=== PATIENT | female | born 2000 | race Caucasian/White ===

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

== ENCOUNTER 2021-01-26 21:06 | Emergency (ER) | payer OTHER ==
[~2021-01-26 21:06] MED LIST: Sodium Chloride 0.9% 1,000 ML BAG ONE
[2021-01-26 23:02] LABS: #Basophils 0.1 thou/uL (0.0-0.2); #Eosinphils 0.2 thou/uL (0.0-0.7); #Lymphocytes 2.3 thou/uL (1.20-3.40); #Monocytes 0.5 thou/uL (0.11-0.59); #Neutrophils 3.3 thou/uL (1.40-6.50); %Basophils 1.3 % (0.0-1.0); %Eosinophils 2.4 % (0.0-10.0); %Lymphocytes 36.3 % (28.0-48.0); %Monocytes 7.7 % (0.0-4.0); %Neutrophils 52.2 % (31.0-61.0); Mean Corpuscular HGB CONC 30.9 g/dL (32.0-36.0); Mean Corpuscular Volume 87.4 fL (78.0-98.0); Mean Platelet Volume 7.7 fL (7.4-10.4); Platelet Count 296 thou/uL (130-400); RBC Distribution Width 11.9 % (11.5-14.5); Red Blood Cell (RBC) Count 5.17 mill/uL (4.00-5.20); White Blood Cell (WBC) Count 6.2 thou/uL (4.8-10.8)
[2021-01-26 23:24] LABS: BHCG - Serum Negative (NEGATIVE); Pregs Control Background? CLEAR/WHITE (CLR/WHITE); Pregs Control Bar Appear? YES (CONTROL BAR)
[2021-01-26 23:30] LABS: ALT (SGPT) 50 U/L (8-55); AST (SGOT) 26 U/L (5-30); Albumin 4.3 g/dL (3.5-5.0); Alkaline Phosphatase 46 U/L (40-100); Anion Gap 13 mmol/L (10-20); BUN (Urea Nitrogen) 13 mg/dL (8.4-21.0); Bilirubin, Total 0.3 mg/dL (0.2-1.2); CK (CPK) 118 U/L (29-168); Calc. Creatinine Clearance 0 mL/min (70-130); Calcium 9.8 mg/dL (7.8-10.44); Carbon Dioxide 22 mmol/L (22-29); Chloride 110 mmol/L (98-107); Globulin 3.1 g/dL (2.4-3.5); Glucose 126 mg/dL (70-105); Magnesium 2.1 mg/dL (1.7-2.2); Potassium 3.9 mmol/L (3.5-5.1); Protein, Total 7.4 g/dL (6.0-8.3); Sodium 141 mmol/L (136-145)
== END 2021-01-26 23:44 | disposition home or self-care (01) ==
LOC: MADERS 21:06
DX: E86.0 Dehydration (principal); E51.9 Thiamine deficiency, unspecified; R10.31 Right lower quadrant pain; Z87.891 Personal history of nicotine dependence
CPT/HCPCS: 80053; 82550; 83735; 84703; 85025; 99284; J7050

== ENCOUNTER 2021-05-27 16:44 | Emergency (ER) | payer OTHER ==
[2021-05-27] MEDS ORDERED: Amoxicillin/Potassium Clav 875 MG TAB ONE (17:53)
[2021-05-27] MEDS ORDERED: Boostrix 0.5 ML (Tdap) VIAL ONE (17:53)
== END 2021-05-27 18:10 | disposition home or self-care (01) ==
LOC: MADERS 16:44
DX: S51.841A Puncture wound with foreign body of right forearm, initial encounter (principal); W54.0XXA Bitten by dog, initial encounter; F17.200 Nicotine dependence, unspecified, uncomplicated
CPT/HCPCS: 90471; 90715

== ENCOUNTER 2021-10-12 14:40 | Emergency (ER) | payer OTHER ==
[2021-10-12] MEDS ORDERED: Mag-Al Plus 1200 MG/1200 MG/120 MG/30 ML UDCUP ONE (15:39)
[2021-10-12 15:44] LABS: Bilirubin Negative (Negative); Blood, Urine Trace (Negative); Clarity Clear (Clear); Glucose, Urine (Dipstick) 500 mg/dL (Negative); Ketone, Urine Negative (Negative); Leukocyte Negative (Negative); Nitrite Negative (Negative); Protein, Urine (Dipstick) Negative (Neg-Trace); Specific Gravity, Urine 1.015 (1.005-1.030); Urobilinogen 0.2 mg/dL (Less than 2); pH, Urine 5.5 (5.0-9.0)
[2021-10-12 16:01] LABS: Bacteria/HPF Rare-Few HPF (None Seen); Mucous/LPF None Seen LPF (<2+); RBC/HPF 0-3 HPF (0-3); WBC/HPF 0-3 HPF (0-3)
== END 2021-10-12 16:29 | disposition home or self-care (01) ==
LOC: MADERS 14:40
DX: K29.70 Gastritis, unspecified, without bleeding (principal); K12.1 Other forms of stomatitis; E28.2 Polycystic ovarian syndrome; E11.65 Type 2 diabetes mellitus with hyperglycemia; I50.9 Heart failure, unspecified; F17.220 Nicotine dependence, chewing tobacco, uncomplicated
CPT/HCPCS: 36416; 81003; 81015; 99284

== ENCOUNTER 2022-02-04 13:13 | Emergency (ER) | payer OTHER ==
[2022-02-04] MEDS ORDERED: Albuterol 200 PUFF (6.7GM INHALER) ONE (13:58)
== END 2022-02-04 14:12 | disposition home or self-care (01) ==
LOC: MADERS 13:13
DX: J20.9 Acute bronchitis, unspecified (principal); I50.9 Heart failure, unspecified; E11.9 Type 2 diabetes mellitus without complications; E28.2 Polycystic ovarian syndrome; G40.909 Epilepsy, unspecified, not intractable, without status epilepticus; F17.220 Nicotine dependence, chewing tobacco, uncomplicated; J45.909 Unspecified asthma, uncomplicated
CPT/HCPCS: 71046